=== PATIENT | male | born 1975 | race Asian ===

== ENCOUNTER 2017-05-04 21:20 | Emergency (ER) | payer SELFPAY | END 2017-05-05 01:00 | disposition home or self-care (01) | LOC: ED 21:20 | DX: S01.81XA Laceration without foreign body of other part of head, initial encounter (principal); W10.9XXA Fall (on) (from) unspecified stairs and steps, initial encounter; Y93.89 Activity, other specified; Y92.009 Unspecified place in unspecified non-institutional (private) residence as the place of occurrence of the external cause; Y99.8 Other external cause status | CPT/HCPCS: 90715 ==